=== PATIENT | female | born 1990 | race Caucasian/White ===

== ENCOUNTER 2018-08-01 16:26 | Inpatient (IN) | payer MEDICAID, OTHER ==
[2018-08-01] MEDS ORDERED: NS 1,500 ML IV ONE (17:23)
[2018-08-01] MEDS ORDERED: ACETAMINOPHEN 325 MG TAB PO ONE (17:24)
--- NOTE | 2018-08-01 17:25 | EDPHY ---
H & P Time Seen by Provider: 08/01/18 17:08 HPI/ROS: CHIEF COMPLAINT: Shaking achy lightheaded right-sided chest pain HISTORY OF PRESENT ILLNESS: Started 2 days ago. Initially was shaking at around 10:00 p.m., then lightheaded and developed an ache in the back on the right side of her chest which is worse with deep breathing or movement or cough. No hemoptysis or sputum production. Fevers and chills. No sore throat or leg swelling, no vomiting or diarrhea. Symptoms moderate to severe. Breast feeding, no other sick contacts. REVIEW OF SYSTEMS: Eye: no change in vision ENT: no sore throat Cardiac: HPI Pulmonary: HPI Abdomen: no vomiting, diarrhea, abdominal pain Musculoskeletal: HPI no leg swelling Skin: no rash Neuro: no headache Constitutional: HPI : no urinary symptoms A comprehensive 10 point review of systems is otherwise negative aside from elements mentioned in the history of present illness. PAST MEDICAL HISTORY: Negative Social history: Breast feeding General Appearance: Alert and conversant, cooperative. Eyes: No scleral icterus. ENT, Mouth: Normal mucous membranes. Respiratory: Decreased breath sounds right base, slight splinting. Cardiovascular: Regular rate and rhythm. Tachycardic. Gastrointestinal: Abdomen is soft and non tender. Neurological: Alert, face symmetric, normal motor and sensory in extremities. Skin: Warm and dry, no rashes. No redness over the breast or swelling or other rashes over the area of pain on the right side of the chest. Musculoskeletal: No peripheral edema. No calf tenderness. Psychiatric: Not agitated. Emergency Department course/MDM: Moderately high suspicion for pulmonary infection, pulmonary embolism or ACS considered less likely. Doubt endocarditis. Blood cultures, lactate, chest x-ray IV fluid bolus and influenza testing. 180: Results discussed with the patient, will admit with extensive right- sided pneumonia with elevated white blood cell count and tachycardia. Patient agreeable. Ceftriaxone 1 g and azithromycin [address] Hall. Smoking Status: Former smoker Constitutional: Initial Vital Signs Temperature (C) 39.3 C H 08/01/18 16:48 Heart Rate 135 H 08/01/18 16:48 Respiratory Rate 22 H 08/01/18 16:48 Blood Pressure 99/75 L 08/01/18 16:48 O2 Sat (%) 92 08/01/18 16:48 O2 Delivery Mode Room Air Allergies/Adverse Reactions: No Known Allergies Allergy (Verified 08/01/18 16:47) Home Medications: Medication Instructions Recorded Emergency Contraceptive Pill 08/01/18 Medical Decision Making - Diagnostics Imaging Results: Imaging Impressions Chest X-Ray 08/01/18 17:24 Impression: Right lower lobe community acquired pneumonia. Imaging: I viewed and interpreted images myself - Data Points Laboratory Results: Laboratory Results 08/01/18 17:20 08/01/18 17:20 08/01/18 08/01/18 08/01/18 17:25 17:20 17:20 WBC RBC Hgb Hct MCV MCH MCHC RDW Plt Count MPV Neut % (Auto) Lymph % (Auto) [place] % (Auto) Eos % (Auto) Baso % (Auto) Nucleat RBC Rel Count Absolute Neuts (auto) Absolute Lymphs (auto) Absolute Monos (auto) Absolute Eos (auto) Absolute Basos (auto) Absolute Nucleated RBC Immature Gran % Seg Neutrophils % Band Neutrophils % Lymphocytes % Monocytes % Eosinophils % Basophils % Metamyelocytes % Myelocytes % Promyelocytes % Blast Cells % Immature Gran # Absolute Seg Neuts Absolute Band Neuts Absolute Lymphocytes Absolute Monocytes Absolute Eosinophils Absolute Basophils Absolute Metamyelocyte Absolute Myelocytes Absolute Promyelocytes Absolute Plasma Cells Nucleated RBCs RBC/WBC/PLT Morphology Absolute Blast Cells Plasma Cells % Platelet Estimate PT 15.6 SEC H SEC (12.0-15.0) INR 1.30 H (0.83-1.16) APTT 32.0 SEC SEC (23.0-38.0) VBG Lactic Acid 1.8 mmol/L mmol/L (0.7-2.1) Sodium Potassium Chloride Carbon Dioxide Anion Gap BUN Creatinine Estimated GFR Glucose Calcium Total Bilirubin Nasal Influenza A PCR NEGATIVE FOR FLU A (NEGATIVE) Nasal Influenza B PCR NEGATIVE FOR FLU B (NEGATIVE) 08/01/18 08/01/18 17:20 17:20 WBC 27.36 10^3/uL H 10^3/uL (3.80-9.50) RBC 4.56 10^6/uL 10^6/uL (4.18-5.33) Hgb 14.3 g/dL g/dL (12.6-16.3) Hct 42.3 % % (38.0-47.0) MCV 92.8 fL fL (81.5-99.8) MCH 31.4 pg pg (27.9-34.1) MCHC 33.8 g/dL g/dL (32.4-36.7) RDW 12.5 % % (11.5-15.2) Plt Count 197 10^3/uL 10^3/uL (150-400) MPV 10.4 fL fL (8.7-11.7) Neut % (Auto) Not Reported Lymph % (Auto) Not Reported [place] % (Auto) Not Reported Eos % (Auto) Not Reported Baso % (Auto) Not Reported Nucleat RBC Rel Count Not Reported Absolute Neuts (auto) Not Reported Absolute Lymphs (auto) Not Reported Absolute Monos (auto) Not Reported Absolute Eos (auto) Not Reported Absolute Basos (auto) Not Reported Absolute Nucleated RBC Not Reported Immature Gran % Not Reported Seg Neutrophils % 94.0 % % Band Neutrophils % 3.0 % % Lymphocytes % 2.0 % % Monocytes % 0.5 % % Eosinophils % 0.0 % % Basophils % 0.5 % % Metamyelocytes % 0.0 % % Myelocytes % 0.0 % % Promyelocytes % 0.0 % % Blast Cells % 0.0 % % Immature Gran # Not Reported Absolute Seg Neuts 25.72 10^3/uL H 10^3/uL (1.70-6.50) Absolute Band Neuts 0.82 10^3/uL H 10^3/uL (0.00-0.70) Absolute Lymphocytes 0.55 10^3/uL L 10^3/uL (1.00-3.00) Absolute Monocytes 0.14 10^3/uL L 10^3/uL (0.30-0.80) Absolute Eosinophils 0.00 10^3/uL L 10^3/uL (0.03-0.40) Absolute Basophils 0.14 10^3/uL H 10^3/uL (0.02-0.10) Absolute Metamyelocyte 0.00 10^3/mL 10^3/mL (0.00-0.00) Absolute Myelocytes 0.00 10^3/mL 10^3/mL (0.00-0.00) Absolute Promyelocytes 0.00 10^3/uL 10^3/uL (0.00-0.00) Absolute Plasma Cells 0.00 10^3/uL 10^3/uL (0.00-0.00) Nucleated RBCs 0 /100 WBC /100 WBC (0-0) RBC/WBC/PLT Morphology NORMAL (NORMAL) Absolute Blast Cells 0.00 10^3/uL 10^3/uL (0.00-0.00) Plasma Cells % 0.0 % % Platelet Estimate ADEQUATE (ADEQ) PT INR APTT VBG Lactic Acid Sodium 129 mEq/L L mEq/L (135-145) Potassium 3.9 mEq/L mEq/L (3.5-5.2) Chloride 96 mEq/L L mEq/L (97-110) Carbon Dioxide 24 mEq/l mEq/l (22-31) Anion Gap 9 mEq/L mEq/L (6-14) BUN 15 mg/dL mg/dL (7-23) Creatinine 0.7 mg/dL mg/dL (0.6-1.0) Estimated GFR > 60 Glucose 110 mg/dL H mg/dL (70-100) Calcium 8.7 mg/dL mg/dL (8.5-10.4) Total Bilirubin 1.7 mg/dL H mg/dL (0.1-1.4) Nasal Influenza A PCR Nasal Influenza B PCR Medications Given: Discontinued Medications Acetaminophen (Tylenol) 650 mg PO EDNOW ONE Stop: 08/01/18 17:25 Last Admin: 08/01/18 17:40 Dose: 650 mg Sodium Chloride (Ns) 1,500 mls @ 3,000 mls/hr 30 ml/kg infuse over 30 min ( 1500 ml) IV EDNOW ONE PRN Reason: Protocol Stop: 08/01/18 17:52 Last Admin: 08/01/18 17:41 Dose: 1,500 mls Ceftriaxone Sodium/Dextrose (Rocephin 1 Gm (Premix)) 50 mls @ 100 mls/hr IV EDNOW ONE PRN Reason: Protocol Stop: 08/01/18 18:32 Last Admin: 08/01/18 18:13 Dose: 50 mls Azithromycin 500 mg/ Sodium (Chloride) 255 mls @ 255 mls/hr IV EDNOW ONE PRN Reason: Protocol Stop: 08/01/18 19:29 Last Admin: 08/01/18 18:39 Dose: 255 mls Departure - Departure Disposition: [facility] Acute Clinical Impression: Pneumonia Qualifiers: Pneumonia type: due to unspecified organism Laterality: right Lung location: lower lobe of lung Qualified Code(s): J18.1 - Lobar pneumonia, unspecified organism Condition: Fair
[2018-08-01 17:40] LABS: PLATELET COUNT 197 10^3/uL (150-400)
[2018-08-01 17:45] LABS: INR 1.3 (0.83-1.16); PROTIME(PATIENT) 15.6 SEC (12.0-15.0)
[2018-08-01] MEDS ORDERED: AZITHROMYCIN IV 500 MG in D5W 250 ML IV ONE (18:03)
[2018-08-01] MEDS ORDERED: AZITHROMYCIN IV 500 MG in NS 250 ML IV ONE (18:30)
[2018-08-01] MEDS ORDERED: ACETAMINOPHEN 325 MG TAB PO PRN (19:21)
[2018-08-01] MEDS ORDERED: ONDANSETRON DISINTEGRATING 4 MG TAB PO PRN (19:21)
[2018-08-01] MEDS ORDERED: ONDANSETRON 4 MG/2 ML VIAL IVP PRN (19:21)
[2018-08-01] MEDS ORDERED: NS W/ 20 KCl/L 1,000 ML IV SCH (19:30)
--- NOTE | 2018-08-01 19:32 | PDGENHP ---
History and Physical - Chief Complaint sob - History of Present Illness 28 yo female with sob, cough, right sided chest pain x 2 days. Worse with deep breathing. Afebrile. 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 NO influenza vaccine She Breast feeds her 2.5 daughter CXR: right sided infiltrate VS: hypotension, tachycardia, on RA PAST MEDICAL HISTORY: Negative, denies hx of asthma/bronchitis Social history: Breast feeding, denies current tobacco use FmHx: non contributory History Information - Allergies/Home Medication List Allergies/Adverse Reactions: No Known Allergies Allergy (Verified 08/01/18 16:47) Home Medications: Emergency Contraceptive Pill 08/01/18 [Last Taken Unknown] I have personally reviewed and updated: medical history, social history - Social History Smoking Status: Former smoker Review of Systems Review of Systems: ROS: 10pt was reviewed & negative except for what was stated in HPI & below Physical Exam Physical Exam: Temp Pulse Resp BP Pulse Ox 38.1 C 116 H 16 91/57 L 92 08/01/18 18:50 08/01/18 18:50 08/01/18 18:50 08/01/18 18:50 08/01/18 18:50 Constitutional: no apparent distress Eyes: PERRL, EOMI Ears, Nose, Mouth, Throat: dry mucous membranes Cardiovascular: tachycardia Respiratory: no respiratory distress, reduced air movement, expiratory wheeze Gastrointestinal: normoactive bowel sounds, soft, non-tender abdomen Skin: warm Neurologic: AAOx3 Psychiatric: interacting appropriately, not anxious, not encephalopathic Lymph, Heme, Immunologic: No petechiae Lab Data & Imaging Review 08/01/18 17:20 08/01/18 17:20 WBC 27.36 10^3/uL (3.80-9.50) H 08/01/18 17:20 RBC 4.56 10^6/uL (4.18-5.33) 08/01/18 17:20 Hgb 14.3 g/dL (12.6-16.3) 08/01/18 17:20 Hct 42.3 % (38.0-47.0) 08/01/18 17:20 MCV 92.8 fL (81.5-99.8) 08/01/18 17:20 MCH 31.4 pg (27.9-34.1) 08/01/18 17:20 MCHC 33.8 g/dL (32.4-36.7) 08/01/18 17:20 RDW 12.5 % (11.5-15.2) 08/01/18 17:20 Plt Count 197 10^3/uL (150-400) 08/01/18 17:20 MPV 10.4 fL (8.7-11.7) 08/01/18 17:20 Neut % (Auto) Not Reported 08/01/18 17:20 Lymph % (Auto) Not Reported 08/01/18 17:20 [place] % (Auto) Not Reported 08/01/18 17:20 Eos % (Auto) Not Reported 08/01/18 17:20 Baso % (Auto) Not Reported 08/01/18 17:20 Nucleat RBC Rel Count Not Reported 08/01/18 17:20 Absolute Neuts (auto) Not Reported 08/01/18 17:20 Absolute Lymphs (auto) Not Reported 08/01/18 17:20 Absolute Monos (auto) Not Reported 08/01/18 17:20 Absolute Eos (auto) Not Reported 08/01/18 17:20 Absolute Basos (auto) Not Reported 08/01/18 17:20 Absolute Nucleated RBC Not Reported 08/01/18 17:20 Immature Gran % Not Reported 08/01/18 17:20 Seg Neutrophils % 94.0 % 08/01/18 17:20 Band Neutrophils % 3.0 % 08/01/18 17:20 Lymphocytes % 2.0 % 08/01/18 17:20 Monocytes % 0.5 % 08/01/18 17:20 Eosinophils % 0.0 % 08/01/18 17:20 Basophils % 0.5 % 08/01/18 17:20 Metamyelocytes % 0.0 % 08/01/18 17:20 Myelocytes % 0.0 % 08/01/18 17:20 Promyelocytes % 0.0 % 08/01/18 17:20 Blast Cells % 0.0 % 08/01/18 17:20 Immature Gran # Not Reported 08/01/18 17:20 Absolute Seg Neuts 25.72 10^3/uL (1.70-6.50) H 08/01/18 17:20 Absolute Band Neuts 0.82 10^3/uL (0.00-0.70) H 08/01/18 17:20 Absolute Lymphocytes 0.55 10^3/uL (1.00-3.00) L 08/01/18 17:20 Absolute Monocytes 0.14 10^3/uL (0.30-0.80) L 08/01/18 17:20 Absolute Eosinophils 0.00 10^3/uL (0.03-0.40) L 08/01/18 17:20 Absolute Basophils 0.14 10^3/uL (0.02-0.10) H 08/01/18 17:20 Absolute Metamyelocyte 0.00 10^3/mL (0.00-0.00) 08/01/18 17:20 Absolute Myelocytes 0.00 10^3/mL (0.00-0.00) 08/01/18 17:20 Absolute Promyelocytes 0.00 10^3/uL (0.00-0.00) 08/01/18 17:20 Absolute Plasma Cells 0.00 10^3/uL (0.00-0.00) 08/01/18 17:20 Nucleated RBCs 0 /100 WBC (0-0) 08/01/18 17:20 RBC/WBC/PLT Morphology NORMAL (NORMAL) 08/01/18 17:20 Absolute Blast Cells 0.00 10^3/uL (0.00-0.00) 08/01/18 17:20 Plasma Cells % 0.0 % 08/01/18 17:20 Platelet Estimate ADEQUATE (ADEQ) 08/01/18 17:20 PT 15.6 SEC (12.0-15.0) H 08/01/18 17:20 INR 1.30 (0.83-1.16) H 08/01/18 17:20 APTT 32.0 SEC (23.0-38.0) 08/01/18 17:20 VBG Lactic Acid 1.8 mmol/L (0.7-2.1) 08/01/18 17:20 Sodium 129 mEq/L (135-145) L 08/01/18 17:20 Potassium 3.9 mEq/L (3.5-5.2) 08/01/18 17:20 Chloride 96 mEq/L (97-110) L 08/01/18 17:20 Carbon Dioxide 24 mEq/l (22-31) 08/01/18 17:20 Anion Gap 9 mEq/L (6-14) 08/01/18 17:20 BUN 15 mg/dL (7-23) 08/01/18 17:20 Creatinine 0.7 mg/dL (0.6-1.0) 08/01/18 17:20 Estimated GFR > 60 08/01/18 17:20 Glucose 110 mg/dL (70-100) H 08/01/18 17:20 Calcium 8.7 mg/dL (8.5-10.4) 08/01/18 17:20 Total Bilirubin 1.7 mg/dL (0.1-1.4) H 08/01/18 17:20 Nasal Influenza A PCR NEGATIVE FOR FLU A (NEGATIVE) 08/01/18 17:25 Nasal Influenza B PCR NEGATIVE FOR FLU B (NEGATIVE) 08/01/18 17:25 Assessment & Plan Assessment: #CAP, right sided #Hypotension #Tachycardia Plan: Admission Rocephin/Azithromycin Await cultures viral resp panel Bronchodilator Lung sounds bilateral are tight with some wheezing. May benefit from a short course of steroid if not improving tomorrow. She wants to wait, concerned about passing it in her breast milk, although reportedly this would be a very low transmission and if needed, felt to be safe IVF. Tachycardia is likely a combination of volume deficit and difficulty with breathing.
[2018-08-01] MEDS: ALBUTEROL 60 PUFFS/8 GM MDI IH SCH (22:22)
[2018-08-02 05:08] LABS: PLATELET COUNT 165 10^3/uL (150-400)
[2018-08-02] MEDS: ALBUTEROL 60 PUFFS/8 GM MDI IH SCH ×2 (05:45→14:04)
[2018-08-02] MEDS ORDERED: AZITHROMYCIN 250 MG TAB PO SCH (09:00)
[2018-08-02 11:18] VITALS: BP 91/61
--- NOTE | 2018-08-02 12:48 | ASMTCMCOM ---
CM Note CM Note Notes: CM discussed case w/ Dr. Lopez. Pt is a 28 y/o female admitted for pneumonia. CM met w/ pt and introduced self. Pt does not feel like she needs any services set up at home at this time. Pt will stay w/ her Mom for a couple of days after discharging from the hospital. CM made a referral to [facility]. CM available for changes. Plan: Independent Date Signed: 08/02/2018 12:44 PM Electronically Signed By:MAIKEL Hayward
--- NOTE | 2018-08-02 14:52 | PDMN ---
Medical Necessity Medical necessity: Pt meets IP criteria per MD & MCG [id number]; est los >2 mn for eval/tx of pneumonia w/hypotension & tachycardia; admit for further monitoring, IV abx, IVFs & respiratory supportive care; per H&P & order 08/01/18
--- NOTE | 2018-08-02 16:25 | ASMTLACE ---
HILDAE Length of stay for Answers: 1 day current admission Acuity / Level of Answers: Yes Care: Did the patient have an inpatient admission? # of Emergency department Answers: 1-2 visits in the last 6 months Score: 5 Date Signed: 08/02/2018 04:24 PM Electronically Signed By:MAIKEL Hayward
--- NOTE | 2018-08-02 16:26 | ASMTCMCOM ---
CM Note CM Note Notes: CM made pt an outpatient PCP appointment to see Dr. Lopez at [facility]. CM provided pt w/ this appointment on a piece of paper. 08/06/18 at 8AM Arrive at 7:45AM for check in. Please bring photo ID, insurance card, list of all meds and d/c paperwork. Date Signed: 08/02/2018 04:26 PM Electronically Signed By:MAIKEL Hayward
== END 2018-08-02 17:40 | disposition home or self-care (01) | DRG 139 ==
LOC: F3E 18:42
PROVIDERS: ADMIT Family Medicine; ATTEND Family Medicine
DX: J18.8 Other pneumonia, unspecified organism (principal); Z87.891 Personal history of nicotine dependence
CPT/HCPCS: 96365; J0456; J0696